=== PATIENT | female | born 1950 | race Caucasian/White ===

== ENCOUNTER 2025-06-01 12:11 | Emergency (ER) | payer MEDICARE, SELFPAY ==
[2025-06-01 12:20] VITALS: BP 141/75; PULSE 72; RESP 22; TEMP 36.4; O2SAT 100
--- OUTSIDE RECORDS SUMMARY | 2025-06-01 12:23 | XMS_ITS | Clinical Summary ---
Author Organization [facility] Office Building [address] [place] [id number] Care Team Providers Care Virtual Assistant Name Role Phone Kolton Tavera MD Primary Care Provider + Allergies No known active allergies Encounters Date Type Department Care Team Description 03/22/2025 11:55 AM CDT Lab [address] [phone] from Last 3 Months Surgical History Surgery Date Site/Laterality Comments HYSTERECTOMY 07/11/1987 Family History Medical History Relation Name Comments Pancreatic cancer Maternal Grandfather Breast cancer Paternal Grandmother Ovarian cancer Neg Hx Prostate cancer Neg Hx Relation Name Status Comments Maternal Grandfather Paternal Grandmother Social History Tobacco Use Types Packs/Day Years Used Date Smoking Tobacco: Never Assessed Comments No Sex and Gender Information Value Date Recorded Sex Assigned at Not on file 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 Gender Identity Female 09/30/2022 2:42 PM CDT Sexual Orientation Not on file Obstetrics History Para Term AB IAB SAB Ectopic Multiple Livin g Live Births 3 3 3 Date Outcome GA Total Labor Labor/2nd/3rd Weight Sex Type Anes PTL Carmen A1 A5 Name Clin Term Term Term Last Filed Vital Signs Vital Sign Reading Time Taken Comments Blood Pressure - - Pulse - - Temperature - - Respiratory Rate - - Oxygen Saturation - - Inhaled Oxygen Concentration - - Weight 65 kg (143 lb 4.8 oz) 12/10/2024 8:42 AM CDT Height 152.4 cm (5') 12/10/2024 8:42 AM CDT Body Mass Index 27.99 12/10/2024 8:42 AM CDT Plan of Treatment Health Maintenance Due Date Last Done Comments Colon Cancer Screening-Colonoscopy 1950 Depression Screening 1950 Fall Risk Assessment 1950 Hepatitis C Screening 1950 Osteoporosis Screening-Bone Density Scan 1950 Hepatitis B Screening 1969 DTaP/Tdap/Td Vaccine (1 - Tdap) 2006 6 Zoster Vaccine (2 of 3) 04/09/2015 02/12/2015 Well Visit 65+ 2016 Influenza Vaccine (#1) 2025 6, 04/18/2015, 04/10/2014, Additional history exists Breast Cancer Screening-Mammogram 12/10/2025 12/10/2024, 12/08/2023, 11/05/2022 Pneumococcal vaccine 65+ Completed 09/11/2018, 01/08 Procedures Procedure Name Priority Date/Time Associated Diagnosis Comments EGFR Routine 03/22/2025 12:02 PM CDT BASIC METABOLIC PANEL Routine 03/22/2025 12:02 PM CDT SCREENING MAMMOGRAM BILATERAL W AMISHA Schedule Routine, Read Routine (OP Routine) 12/10/2024 9:04 AM CDT Screening mammogram, encounter for from Last 3 Months or Most Recently Relevant to Health Maintenance Results * eGFR (03/22/2025 12:02 PM CDT) eGFR 77 >=60 mL/min/1. 73 m2 Comment: Interpretive Data Reference Interval Normal >/= 90 mL/min/1.73m2 Mildly decreased* 60 - 89 mL/min/1.73m2 Mildly to moderately decreased 45 - 59 mL/min/1.73m2 Moderately to severely decreased 30 - 44 mL/min/1.73m2 Severely decreased 15 - 29 mL/min/1.73m2 Kidney Failure < 15 mL/min/1.73m2 *Relative to young adult level Estimated glomerular filtration rate is determined by the 2020 CKD-EPI equation recommended by the National Kidney Foundation (A Unifying Approach to GFR Estimation: Recommendations of the NKF-ASK Task Force on Reassessing the Inclusion of Race in Diagnosing Kidney Disease, JASN 2020). The CKD-EPI equation should not be used for patients with unstable renal function and has not been validated in children and those over 70. Current interpretive data was last reviewed 2021. Blood 03/22/2025 12:0 2 PM CDT 03/22/2025 7:27 PM CDT us Kolton Tavera MD LAB BLOOD ORDERABLES Fin al Result [facility] [address] [address] Department [place] [address] * (ABNORMAL) Basic metabolic panel (03/22/2025 12:02 PM CDT) Sodium 136 135 - 145 mmol/L Potassium, pl 4.2 3.3 - 4.9 mmol/L [facility] Chloride 97 97 - 110 mmol/L [facility] CO2 27 22 - 32 mmol/L [facility] Anion gap 12 2 - 15 mmol/L [facility] BUN 39(H) 6 - 25 mg/dL [facility] Creatinine 0.81 0.60 - 1.10 mg/dL [facility] Glucose 103 70 - 199 mg/dL [facility] Comment: Interpretive Data Fasting glucose >/= 126 mg/dl is diagnostic for diabetes. Fasting is defined as no caloric intake for at least 8 hours. Fasting glucose between 100 mg/dl to 125 mg/dl is diagnostic of prediabetes. In a patient with classic symptoms of hyperglycemia or hyperglycemic crisis, a random glucose >/= 200 mg/dl is diagnostic for diabetes. In the absence of unequivocal hyperglycemia, results should be confirmed by repeat testing. The classification and Diagnosis of Diabetes Diabetes Care 2021; 46: S19-S40. Current interpretive data was last revised 2022. Calcium 9.6 8.5 - 10.3 mg/dL [facility] Blood 03/22/2025 12:0 2 PM CDT 03/22/2025 7:08 PM CDT Kolton Tavera MD LAB BLOOD ORDERABLES Fin al Result [facility] [address] [address] Department [place] [address] * Screening Mammogram Bilateral W Amisha (12/10/2024 9:04 AM CDT) Anatomical Region Laterality Modality Breast Bilateral Mammography Impressions 12/10/2024 10:43 AM CDT Bilateral No evidence of malignancy in either breast. OVERALL BI-RADS FINAL ASSESSMENT: 2 - Benign RECOMMENDATION: Recommend bilateral annual screening mammography. Narrative 12/10/2024 10:43 AM CDT EXAMINATION: Screening Mammogram Bilateral W Amisha: 12/10/2024 COMPARISON: Relevant prior studies available at the time of interpretation were reviewed. TECHNIQUE: Mammography was performed with 2D and digital breast tomosynthesis (DBT) images. CAD was utilized. BREAST PARENCHYMAL COMPOSITION: The breasts are heterogeneously dense, which may obscure small masses. FINDINGS: Bilateral There is no suspicious mass, calcification, or architectural distortion in either breast. us Self Screening Mammogram IMG MAMMO PROCEDURES Fi nal Result from Last 3 Months or Most Recently Relevant to Health Maintenance Insurance MEDICARE AETNA SENIOR SUPPLEMENT MEDICARE AETNA AETNA SENIOR SUPPLEMENT Care Teams Virtual Assistant Relationship Specialty [place] [id number] [facility] [address] [place] [address] PCP - General Internal Medicine 09/30/22
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
[2025-06-01] MEDS: SILVER SULFADIAZINE 1% CR 50 GM JAR (*BKC) 1 APPLIC TOPICAL (13:03)
== END 2025-06-01 13:21 | disposition home or self-care (01) ==
PROVIDERS: Emergency Provider Registered Nurse; PCP Internal Medicine Geriatric Medicine
DX: T22.211A Burn of second degree of right forearm, initial encounter (principal); X03.0XXA Exposure to flames in controlled fire, not in building or structure, initial encounter; I10 Essential (primary) hypertension; E03.9 Hypothyroidism, unspecified
CPT/HCPCS: 16020; 99203; A9270; G0463